=== PATIENT | female | born 1965 | race Caucasian/White ===

== ENCOUNTER 2023-08-23 09:28 | Emergency (ER) | payer OTHER ==
[~2023-08-23] VITALS: Ht 160 cm; Wt 59.0 kg
[~2023-08-23 09:28] MED LIST: CEPH-570 PO; SULF1TAB48 PO
[2023-08-23 09:34] VITALS: O2SAT 99
== END 2023-08-23 09:51 | disposition left against medical advice (07) ==
LOC: ER 09:50
DX: N89.8 Other specified noninflammatory disorders of vagina (principal); Z53.21 Procedure and treatment not carried out due to patient leaving prior to being seen by health care provider